=== PATIENT | male | born 1960 | race Caucasian/White ===

== ENCOUNTER 2018-01-29 13:41 | Observation (INO) | payer OTHER ==
[2018-01-29 19:32] LABS: ADD MAN DIFF? NO
[2018-01-29 19:35] LABS: BASOPHIL # 0.1 10^3/ul (0.0-0.1); BASOPHILS % 1.4 % (0.0-2.0); EOSINOPHILS % 0.8 % (0.0-7.0); LYMPHOCYTES # 1.9 10^3/ul (0.8-2.9); LYMPHOCYTES % 39.6 % (15.0-51.0); MEAN CORPUSCULAR HEMOGLOBIN 33.5 pg (29.0-33.0); MEAN CORPUSCULAR HGB CONC 34.2 g/dl (32.0-37.0); MEAN CORPUSCULAR VOLUME 97.9 fl (82.0-101.0); MEAN PLATELET VOLUME 11.2 fl (7.4-10.4); MONOCYTE # 0.4 10^3/ul (0.3-0.9); MONOCYTES % 8.5 % (0.0-11.0); NEUTROPHIL # 2.4 10^3/ul (1.6-7.5); NEUTROPHILS % 49.5 % (39.0-77.0); PLATELET COUNT 131 10^3/UL (140-415); POSITIVE DIFF @See below; RED BLOOD COUNT 3.88 10^6/ul (4.70-6.10); RED CELL DISTRIBUTION WIDTH 14.5 % (11.5-14.5)
[2018-01-29 19:35] LABS: WHITE BLOOD COUNT 4.9 10^3/ul (4.8-10.8)
[2018-01-29] MEDS: ASPIRIN 325 MG TAB PO (19:37)
[2018-01-29] MEDS: NITROGLYCERIN 2% 1 GM OINT PKT TD (19:39)
[2018-01-29] MEDS: morphine 4 MG/ML VIAL IV (19:39)
[2018-01-29] MEDS: ONDANSETRON 4 MG INJ IV (19:39)
[2018-01-29 19:52] LABS: ALANINE AMINOTRANSFERASE 32 IU/L (13-69); ALBUMIN 5.1 g/dl (3.3-4.9); ALBUMIN/GLOBULIN RATIO 1.41; ALKALINE PHOSPHATASE 42 IU/L (42-121); ANION GAP 18 (8-16); ASPARTATE AMINO TRANSFERASE 39 IU/L (15-46); BILIRUBIN,INDIRECT 0.5 mg/dl (0-1.1); BILIRUBIN,TOTAL 0.5 mg/dl (0.2-1.3); BLOOD UREA NITROGEN 20 mg/dl (7-20); CALCIUM 9.5 mg/dl (8.4-10.2); CARBON DIOXIDE 28 mmol/L (21-31); CHLORIDE 102 mmol/L (97-110); CREATININE 1.04 mg/dl (0.61-1.24); GLUCOSE 103 mg/dl (70-220); POTASSIUM 4.2 mmol/L (3.5-5.1); SODIUM 144 mmol/L (135-144); TOTAL PROTEIN 8.7 g/dl (6.1-8.1)
[2018-01-29 20:04] LABS: TROPONIN-I < 0.012 ng/ml (0.00-0.12)
[2018-01-29] MEDS ORDERED: ACETAMINOPHEN 325 MG TAB PO (22:00)
[2018-01-29] MEDS ORDERED: ONDANSETRON 4 MG INJ IV (22:00)
[2018-01-30] MEDS ORDERED: NACL 0.9% 3 ML SYG IV (02:00)
[2018-01-30] MEDS ORDERED: ALBUTEROL/IPRATROPIUM (NEB) 3 ML AMP HHN (02:00)
[2018-01-30] MEDS ORDERED: NITROGLYCERIN (SL) 0.4 MG TAB SL (02:00)
[2018-01-30] MEDS ORDERED: ACETAMINOPHEN 325 MG TAB PO (02:00)
[2018-01-30] MEDS ORDERED: morphine 2 MG INJ IV (02:00)
[2018-01-30] MEDS ORDERED: ONDANSETRON 4 MG INJ IV (02:00)
[2018-01-30 02:34] LABS: CREATINE KINASE 296 IU/L (23-200)
[2018-01-30 03:10] LABS: CK-MB 3.08 ng/ml (0.0-2.4); TROPONIN-I < 0.012 ng/ml (0.00-0.12)
[2018-01-30 05:31] LABS: ADD MAN DIFF? NO
[2018-01-30 05:34] LABS: BASOPHIL # 0.1 10^3/ul (0.0-0.1); BASOPHILS % 1.6 % (0.0-2.0); EOSINOPHILS # 0.1 10^3/ul (0.0-0.5); EOSINOPHILS % 2.5 % (0.0-7.0); HEMATOCRIT 35.3 % (42.0-52.0); HEMOGLOBIN 12.1 g/dl (14.0-18.0); LYMPHOCYTES # 2.1 10^3/ul (0.8-2.9); LYMPHOCYTES % 48.1 % (15.0-51.0); MEAN CORPUSCULAR HEMOGLOBIN 33.4 pg (29.0-33.0); MEAN CORPUSCULAR HGB CONC 34.3 g/dl (32.0-37.0); MEAN CORPUSCULAR VOLUME 97.5 fl (82.0-101.0); MEAN PLATELET VOLUME 11.4 fl (7.4-10.4); MONOCYTE # 0.5 10^3/ul (0.3-0.9); MONOCYTES % 10.8 % (0.0-11.0); NEUTROPHIL # 1.6 10^3/ul (1.6-7.5); NEUTROPHILS % 36.8 % (39.0-77.0); PLATELET COUNT 120 10^3/UL (140-415); POSITIVE DIFF @See below; RED BLOOD COUNT 3.62 10^6/ul (4.70-6.10); RED CELL DISTRIBUTION WIDTH 14.3 % (11.5-14.5)
[2018-01-30 05:34] LABS: WHITE BLOOD COUNT 4.4 10^3/ul (4.8-10.8)
[2018-01-30 05:57] LABS: HEMOGLOBIN A1C 5.4 % (0-5.9)
[2018-01-30 06:00] LABS: ALANINE AMINOTRANSFERASE 30 IU/L (13-69); ALBUMIN 4.6 g/dl (3.3-4.9); ALBUMIN/GLOBULIN RATIO 1.64; ALKALINE PHOSPHATASE 36 IU/L (42-121); ANION GAP 17 (8-16); ASPARTATE AMINO TRANSFERASE 33 IU/L (15-46); BILIRUBIN,INDIRECT 0.4 mg/dl (0-1.1); BILIRUBIN,TOTAL 0.4 mg/dl (0.2-1.3); BLOOD UREA NITROGEN 18 mg/dl (7-20); CALCIUM 8.9 mg/dl (8.4-10.2); CARBON DIOXIDE 28 mmol/L (21-31); CHLORIDE 100 mmol/L (97-110); CREATININE 0.98 mg/dl (0.61-1.24); GLUCOSE 88 mg/dl (70-220); HDL CHOLESTEROL 69 mg/dl (28-71); POTASSIUM 3.5 mmol/L (3.5-5.1); SODIUM 141 mmol/L (135-144); TOTAL PROTEIN 7.4 g/dl (6.1-8.1); TRIGLYCERIDES 151 mg/dl (0-149)
[2018-01-30 06:09] LABS: CHOL/HDL RATIO 4.8 RATIO; CHOLESTEROL 332 mg/dl (100-200); LDL CHOLESTEROL,CALCULATED 233 mg/dl
[2018-01-30] MEDS: ASPIRIN 81 MG TAB PO (08:09)
[2018-01-30] MEDS: ENOXAPARIN 40 MG/0.4 ML SYG SC (08:12)
[2018-01-30 09:25] LABS: CREATINE KINASE 250 IU/L (23-200)
[2018-01-30 09:38] LABS: CK INDEX 1.1
[2018-01-30 09:39] LABS: CK-MB 2.65 ng/ml (0.0-2.4); TROPONIN-I < 0.012 ng/ml (0.00-0.12)
[2018-01-30 12:54] LABS: C-REACTIVE PROTEIN < 0.5 mg/dl (0.0-0.9)
[2018-01-30 13:18] LABS: FREE T4 (FREE THYROXINE) 0.09 ng/dl (0.64-1.79)
[2018-01-30 13:39] LABS: ERYTHROCYTE SEDIMENTATION RATE 4 mm/Hr (0-20)
[2018-01-30 14:08] LABS: FERRITIN 82.8 ng/ml (11.1-264.0)
[2018-01-30 14:38] LABS: FOLATE 6.9 ng/ml (2.8-20.0)
[2018-01-30 14:53] LABS: IRON 97 ug/dl (35-150)
[2018-01-30 15:02] LABS: % IRON SATURATION 31 % SAT (22-52); TOTAL IRON BINDING CAPACITY 316 ug/dl (241-421)
[2018-01-30 15:36] LABS: AMPHETAMINE/METHAMPHETAMINE Negative (NEGATIVE); BARBITURATES Negative (NEGATIVE); BENZODIAZEPINES Negative (NEGATIVE); CANNABINOIDS Positive (NEGATIVE); COCAINE Negative (NEGATIVE); OPIATES Positive (NEGATIVE)
[2018-01-30 16:04] LABS: HIV 1&2 ANTIBODY NEGATIVE (NEGATIVE)
[2018-01-30] MEDS: SOD CHLORIDE 0.9% 100 ML (17:09)
[2018-01-30] MEDS: NITROGLYCERIN AEROSOL (4.9 GM) (17:09)
[2018-01-30] MEDS: IOHEXOL 100 ML (17:09)
[2018-01-30] MEDS: ATORVASTATIN 40 MG TAB PO (21:40)
[2018-01-31] MEDS: LEVOTHYROXINE 75 MCG TAB PO (05:45)
[2018-01-31 06:02] LABS: ADD MAN DIFF? NO
[2018-01-31 06:15] LABS: WHITE BLOOD COUNT 5.5 10^3/ul (4.8-10.8)
[2018-01-31 06:15] LABS: BASOPHIL # 0.1 10^3/ul (0.0-0.1); BASOPHILS % 0.9 % (0.0-2.0); EOSINOPHILS # 0.1 10^3/ul (0.0-0.5); EOSINOPHILS % 1.8 % (0.0-7.0); HEMATOCRIT 39.4 % (42.0-52.0); HEMOGLOBIN 13.5 g/dl (14.0-18.0); LYMPHOCYTES # 2.2 10^3/ul (0.8-2.9); LYMPHOCYTES % 40.3 % (15.0-51.0); MEAN CORPUSCULAR HEMOGLOBIN 33.6 pg (29.0-33.0); MEAN CORPUSCULAR HGB CONC 34.3 g/dl (32.0-37.0); MEAN PLATELET VOLUME 11.6 fl (7.4-10.4); MONOCYTE # 0.5 10^3/ul (0.3-0.9); MONOCYTES % 9.1 % (0.0-11.0); NEUTROPHIL # 2.6 10^3/ul (1.6-7.5); NEUTROPHILS % 47.7 % (39.0-77.0); PLATELET COUNT 132 10^3/UL (140-415); RED BLOOD COUNT 4.02 10^6/ul (4.70-6.10); RED CELL DISTRIBUTION WIDTH 14.1 % (11.5-14.5)
[2018-01-31 06:31] LABS: INR 0.95; PROTIME 12.8 Sec (11.9-14.9)
[2018-01-31 06:32] LABS: PARTIAL THROMBOPLASTIN TIME 34.3 Sec (25.0-35.0)
[2018-01-31 06:44] LABS: ANION GAP 15 (8-16); BLOOD UREA NITROGEN 17 mg/dl (7-20); CALCIUM 9.4 mg/dl (8.4-10.2); CARBON DIOXIDE 29 mmol/L (21-31); CHLORIDE 100 mmol/L (97-110); CREATININE 1.16 mg/dl (0.61-1.24); GLUCOSE 94 mg/dl (70-220); MAGNESIUM 2.2 mg/dl (1.7-2.5); PHOSPHORUS 3.9 mg/dl (2.5-4.9); POTASSIUM 4.3 mmol/L (3.5-5.1); SODIUM 140 mmol/L (135-144)
[2018-01-31 06:59] LABS: CREATINE KINASE 217 IU/L (23-200)
[2018-01-31 07:05] LABS: CK INDEX 1.4
[2018-01-31 07:10] LABS: CK-MB 3.02 ng/ml (0.0-2.4); TROPONIN-I < 0.012 ng/ml (0.00-0.12)
[2018-01-31] MEDS: ASPIRIN 81 MG TAB PO (09:41)
[2018-01-31] MEDS: ENOXAPARIN 40 MG/0.4 ML SYG SC (09:43)
== END 2018-01-31 15:40 | disposition home or self-care (01) ==
LOC: E/R 13:41 → MS3 21:53
DX: R07.89 Other chest pain (principal); E03.9 Hypothyroidism, unspecified; E78.5 Hyperlipidemia, unspecified; R55 Syncope and collapse; Z87.891 Personal history of nicotine dependence
CPT/HCPCS: 36415; 70450; 71045; 75574; 80048; 80053; 80061; 80307; 82550; 82553; 82607; 82728; 82746; 83036; 83540; 83735; 84100; 84439; 84443; 84484; 85025; 85610; 85651; 85730; 86140; 86703; 93005; 93306; 93880; 96374; 96375; 99285-25